=== PATIENT | female | born 1950 | race Caucasian/White ===

== ENCOUNTER 2020-04-21 16:29 | Emergency (ER) | payer MEDICARE, OTHER ==
[~2020-04-21] VITALS: Ht 172.7 cm; Wt 89.4 kg
[2020-04-21] MEDS ORDERED: FUROSEMIDE 20 M20 MG PO (16:36)
[2020-04-21] MEDS ORDERED: TOPROL XL25 MG PO (16:36)
[2020-04-21] MEDS ORDERED: CRESTOR5 MG PO (16:36)
[2020-04-21] MEDS ORDERED: COZAAR 25 MG TA25 MG PO (16:37)
[2020-04-21] MEDS ORDERED: ASA81BEC PO (16:37)
[2020-04-21 17:32] LABS: ABSOLUTE BASOPHILS 0.1 thou/uL (0.0-0.2); ABSOLUTE EOSINOPHILS 0.1 thou/uL (0.0-0.7); ABSOLUTE LYMPHOCYTES 1.2 thou/uL (0.8-5.3); ABSOLUTE NEUTROPHILS 4.8 thou/uL (1.6-8.1); BASOPHILS 1.1 %; EOSINOPHILS 0.9 %; HEMOGLOBIN 13.1 gm/dL (12.0-15.0); LYMPHOCYTES 16.4 %; MCH 31.3 pg (26.0-34.0); MCHC 33.5 g/dL (28.0-37.0); MCV 93.5 fL (80.0-100.0); MPV 8.9 fl. (7.2-11.1); NUCLEATED RBCS 0 /100WBC; PLATELET COUNT* 170 thou/uL (150-400); POLYS 67.6 %; RBC 4.17 mil/uL (4.20-5.00); RDW-CV 14.6 % (10.5-14.5); WBC 7.1 thou/uL (4.0-11.0)
[2020-04-21 17:40] LABS: CALCIUM 8.9 mg/dL (8.5-10.1); CREATININE 1.4 mg/dL (0.6-1.3); POTASSIUM 3.7 mmol/L (3.5-5.1)
[2020-04-21 18:06] VITALS: BP 138/80
--- NOTE | 2020-04-23 11:40 | EKG ---
[place] [address] ELECTROCARDIOGRAM REPORT Name: JULIANA JANE Room: [facility]#: [id number] Admission: 04/21/20 Attend Phys: Discharge: 04/21/20 Date of : 52 Date of Service: 04/21/20 1718 Report #: [id number] THIS REPORT FOR: //name// [facility] ED Test Date: 2020-04-21 Test Time: 17:18:22 Pat Name: JULIANA JANE Department: Room: Gender: [employer] Manager: : [id number] Requested By: Harish Barney Order Number: [id number] MD: Judah Torres Measurements Intervals [place] Rate: 60 P: 32 MI: 175 QRS: 4 QRSD: 104 T: 47 QT: 447 QTc: 447 Interpretive Statements Sinus rhythm Baseline wander in lead(s) V5 No previous ECG available for comparison Electronically Signed On 04-23-2020 11:40:17 CDT by Judah Torres [email or web address] <ELECTRONICALLY SIGNED> By: Nida Torres MD, [facility] 04/23/20 1140 1718 1718 Nida Torres MD, [facility] /EPI
== END 2020-04-21 18:10 | disposition home or self-care (01) ==
LOC: M.ERS 16:29
PROVIDERS: Nurse Practitioner Psychiatric/Mental Health
DX: S00.83XA Contusion of other part of head, initial encounter (principal); W10.8XXA Fall (on) (from) other stairs and steps, initial encounter; Y93.89 Activity, other specified; Y92.89 Other specified places as the place of occurrence of the external cause; Y99.8 Other external cause status